=== PATIENT | male | born 2000 | race Caucasian/White ===

== ENCOUNTER 2018-08-10 10:56 | Inpatient (IN) | payer OTHER ==
[~2018-08-10] VITALS: Ht 188 cm; Wt 76.1 kg
[~2018-08-10 10:56] MED LIST: ALBU90OI6 INH; AMPDEX30CR PO; ARIP20 PO; CEPH500 PO; CODACE30 PO; IBUP600 PO; IMIP10; INTUNIV3 MG PO; LAMO100; MELA3 PO; METPHE10 PO; METPHE5; Norco 5-325 Ta1 EACH PO; ONDA4ODT MM; RXCODACET PO; SULTRIDS PO; Zofran Odt4 MG SL
[2018-08-10 11:20] LABS: BASOPHILS ABSOLUTE AUTO 0.09 K/mm3 (0.00-0.23); BASOPHILS PERCENT AUTO 1 % (0-2); EOSINOPHILS ABSOLUTE AUTO 0.38 K/mm3 (0.00-0.68); EOSINOPHILS PERCENT AUTO 4 % (0-6); Hematocrit 48.1 % (37.0-53.0); IMMATURE GRAN ABSOLUTE AUTO 0.03 K/mm3 (0.00-0.10); IMMATURE GRAN PERCENT AUTO 0 % (0-1); LYMPHOCYTES PERCENT AUTO 34 % (21-46); MONOCYTES ABSOLUTE AUTO 0.88 K/mm3 (0.16-1.47); MONOCYTES PERCENT AUTO 10 % (4-13); Mean Corpuscular HGB 29.4 pg (26.0-34.0); Mean Corpuscular HGB Conc 33.3 g/dL (31.5-36.5); Mean Corpuscular Volume 88 fL (80-100); Mean Platelet Volume 11.3 fL (9.1-12.4); NEUTROPHILS ABSOLUTE AUTO 4.33 K/mm3 (1.96-9.15); NEUTROPHILS PERCENT AUTO 50 % (41-73); Platelet Count 250 K/mm3 (150-400); RDW Coefficient Variation 12.5 % (11.7-14.2); RDW Standard Deviation 40.7 fL (35.1-46.3); Red Blood Cell Count 5.44 M/mm3 (4.30-5.90); White Blood Cell Count 8.71 K/mm3 (4.00-11.30)
[2018-08-10 11:40] LABS: Alanine Aminotransfer (ALT/SGP 327 U/L (12-78); Albumin, Blood 4.5 g/dL (3.4-5.0); Albumin/Globulin Ratio 1.5 (0.8-1.8); Alk Phos 166 U/L (50-136); Anion Gap 8 mmol/L (6-16); Aspartate Aminotrans (AST/SGOT 232 U/L (12-37); Bilirubin, Total 3.8 mg/dL (0.1-1.0); Blood Urea Nitrogen 8 mg/dL (8-24); Bun/Creatinine Ratio 8.1 (12.0-20.0); CO2, Blood 29 mmol/L (21-32); Chloride, Blood 104 mmol/L (98-108); Creatinine, Blood 0.99 mg/dL (0.60-1.20); Globulin, Blood 3.1 g/dL (2.2-4.0); Glomerular Filtration Rate >60 (60-); Glucose, Blood 98 mg/dL (70-99); Potassium, Blood 3.3 mmol/L (3.5-5.5); Sodium, Blood 141 mmol/L (136-145); Total Protein, Blood 7.6 g/dL (6.4-8.2)
[2018-08-10 15:09] LABS: CHOL/HDL RATIO 3.9; Cholesterol 125 mg/dL (50-200); HDL Cholesterol 32 mg/dL (>39); LDL/HDL RATIO 2.4; Low Density Lipoprotein Chol 77 mg/dL (0-110); Triglycerides 80 mg/dL (30-140); Very Low Density Lipoprot Chol 16 mg/dL (6-28)
--- NOTE | 2018-08-10 17:20 | NUR ---
PATIENT ARRIVED TO THE FLOOR IN THE 1600 HOUR. PATIENT ADMISSION DONE. NO SKIN ISSUES, NO PROBLEMS WITH HIS CARDIOPULMONARY FUNCTION. NO WHEEZES NOTED. 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 NO ACUTE CONCERNS AT THIS TIME MINUS THE PAIN MANAGEMENT AND TO MANAGE HIS NAUSEA. PATIENT HAD PEPCID DOWN IN THE ED WELL FENTANYL. THE FENTANYL IS BEGINNING TO WEAR OFF AND THE PATIENT IS COMPLAINING OF 9/10 ABDOMINAL PAIN. WILL ASSESS FOR ANY CHANGES. PLANNING TO CALL DR. GARNER TO ASSESS FOR CHANGE IN PAIN MANAGEMENT.
--- NOTE | 2018-08-10 18:11 | NUR ---
SHIFT SUMMARY PATIENT ADMITTED 1600. PAIN MANAGEMENT AND NAUSEA MANAGEMENT ARE HIS CURRENT CONCERNS. CALL TO DR. GARCIA FOR SURGERY CONSULT.
[2018-08-10 18:15] LABS: U Amphetamine Screen Not Detected; U Barbituate Screen Not Detected; U Benzodiazapine Screen Not Detected; U Buprenorphine Screen Not Detected; U Cannabinoids Screen DETECTED; U Cocaine Screen Not Detected; U Methadone Screen Not Detected; U Methamphetamine Screen Not Detected; U Opiates Screen Not Detected; U Oxycodone Screen Not Detected; U Phencyclidine Screen Not Detected; U Propoxyphene Screen Not Detected
--- NOTE | 2018-08-11 04:18 | NUR ---
SHIFT SUMMARY THE PT ADMITTED FOR GALL STONE PANCREATITIS. FULL CODE. NPO. 20G IV TO L AC. INDEPENDENT IN ROOM. NS WITH KCL 20 MEQ RUNNING AT 100 MLS/HR. THE PT PRESENTED TO THE ED WITH A STOMACH ACHE. THE PT DX WITH PANCREATITIS POSSIBLY SECONDARY TO GALLSTONES. HOWEVER, THE US OF THE LIVER AND GALLBLADDER IS UNCREMARKABLE PER REPORT. THE PLAN IS FOR A SURGICAL CONSULT TO DETERMINE THE POSSIBLE NEED FOR A CHOLECYSTECTOMY. LIPASE LEVEL INITIALLY OF 18,775. UPON ARRIVAL ON SHIFT THE PT APPEARED TO BE IN VERY SEVERE PAIN. THE PT WAS CRYING, ROCKING BACK AND FORTH AND COULD NOT SIT STILL, THE PT COULD BARELY ANSWER QUESTIONS DUE TO SEVERE PAIN. PT HAD PAIN MEDS PER EMAR WHICH DID NOT APPEAR TO BE EFFECTIVE PRIOR TO ARRIVAL ON SHIFT. CALL TO HOSPITALIST TO OBTAIN ORDER FOR DIFFERENT MED FOR PAIN TREATMENT. MEDICATED PT PER EMAR X1 SO FAR THIS SHIFT. PT HAS NOT ASKED FOR ADDITIONAL PAIN MEDICATION SO FAR THIS SHIFT. THE PT HAS ASKED FOR WATER SEVERAL TIMES DUE TO DRY MOUTH, GAVE MOISTURE SWABS FOR COMFORT PT IS NPO. THE PT HAS APPEARED TO SLEEP COMFORTABLY MOST OF THE NIGHT. NO APPARENT SIGNS OF ACUTE DISTRESS. ABLE TO MAKE NEEDS KNOWN AND CALL LIGHT IN REACH.
[2018-08-11 05:15] LABS: BASOPHILS ABSOLUTE AUTO 0.05 K/mm3 (0.00-0.23); BASOPHILS PERCENT AUTO 0 % (0-2); EOSINOPHILS ABSOLUTE AUTO 0.09 K/mm3 (0.00-0.68); EOSINOPHILS PERCENT AUTO 1 % (0-6); Hemoglobin 14.1 g/dL (13.5-17.5); IMMATURE GRAN ABSOLUTE AUTO 0.08 K/mm3 (0.00-0.10); IMMATURE GRAN PERCENT AUTO 1 % (0-1); LYMPHOCYTES ABSOLUTE AUTO 1.86 K/mm3 (0.84-5.20); LYMPHOCYTES PERCENT AUTO 11 % (21-46); MONOCYTES PERCENT AUTO 7 % (4-13); Mean Corpuscular HGB 29.1 pg (26.0-34.0); Mean Corpuscular HGB Conc 33.6 g/dL (31.5-36.5); Mean Corpuscular Volume 87 fL (80-100); Mean Platelet Volume 11.6 fL (9.1-12.4); NEUTROPHILS ABSOLUTE AUTO 13.13 K/mm3 (1.96-9.15); NEUTROPHILS PERCENT AUTO 81 % (41-73); Platelet Count 232 K/mm3 (150-400); RDW Coefficient Variation 12.5 % (11.7-14.2); RDW Standard Deviation 39.8 fL (35.1-46.3); Red Blood Cell Count 4.84 M/mm3 (4.30-5.90); White Blood Cell Count 16.31 K/mm3 (4.00-11.30)
[2018-08-11 05:43] LABS: Alanine Aminotransfer (ALT/SGP 195 U/L (12-78); Albumin, Blood 3.5 g/dL (3.4-5.0); Albumin/Globulin Ratio 1.5 (0.8-1.8); Alk Phos 134 U/L (50-136); Anion Gap 8 mmol/L (6-16); Aspartate Aminotrans (AST/SGOT 68 U/L (12-37); Bilirubin, Total 1.3 mg/dL (0.1-1.0); Blood Urea Nitrogen 10 mg/dL (8-24); Bun/Creatinine Ratio 12.7 (12.0-20.0); CO2, Blood 24 mmol/L (21-32); Chloride, Blood 111 mmol/L (98-108); Creatinine, Blood 0.79 mg/dL (0.60-1.20); Globulin, Blood 2.3 g/dL (2.2-4.0); Glomerular Filtration Rate >60 (60-); Glucose, Blood 69 mg/dL (70-99); Sodium, Blood 143 mmol/L (136-145); Total Protein, Blood 5.8 g/dL (6.4-8.2)
--- NOTE | 2018-08-11 17:18 | NUR ---
SUMMARY PT RESTING QUIETLY IN BED, FAMILY HAS BEEN AT THE BEDSIDE FOR MOST OF THE DAY, PT HAS BEEN INDEPENDENT IN THE ROOM, MED PER EMAR FOR PAIN, HAS DENIED ANY NAUSEA T/O THE DAY, PT JAYMIE SMALL AMOUNTS OF ICE CHIPS AND SIPS OF WATER, VSS, NO ACUTE CHANGES, WILL CONT TO MONITOR
--- NOTE | 2018-08-12 05:01 | NUR ---
SHIFT SUMMARY NO ACUTE CHANGES. MEDICATED X1 FOR FEVER AND X1 FOR PAIN. PATIENT SLEPT AND WATCHED TELEVISION DURING SHIFT. PATIENT VERY EAGER TO ADVANCE HIS DIET. PATIENT DENIES NAUSEA AND SHORTNESS OF BREATH. PATIENT INDEPENDENT IN THE ROOM. CALL LIGHT IN REACH, WILL CONTINUE TO MONITOR UNTIL REPORT GIVEN TO ONCOMING RN.
[2018-08-12 05:14] LABS: BASOPHILS ABSOLUTE AUTO 0.04 K/mm3 (0.00-0.23); BASOPHILS PERCENT AUTO 0 % (0-2); EOSINOPHILS ABSOLUTE AUTO 0.17 K/mm3 (0.00-0.68); EOSINOPHILS PERCENT AUTO 1 % (0-6); Hematocrit 40.1 % (37.0-53.0); Hemoglobin 13.2 g/dL (13.5-17.5); IMMATURE GRAN ABSOLUTE AUTO 0.06 K/mm3 (0.00-0.10); IMMATURE GRAN PERCENT AUTO 1 % (0-1); LYMPHOCYTES ABSOLUTE AUTO 2.14 K/mm3 (0.84-5.20); LYMPHOCYTES PERCENT AUTO 17 % (21-46); MONOCYTES ABSOLUTE AUTO 1.08 K/mm3 (0.16-1.47); MONOCYTES PERCENT AUTO 9 % (4-13); Mean Corpuscular HGB 29.1 pg (26.0-34.0); Mean Corpuscular HGB Conc 32.9 g/dL (31.5-36.5); Mean Corpuscular Volume 88 fL (80-100); Mean Platelet Volume 11.4 fL (9.1-12.4); NEUTROPHILS ABSOLUTE AUTO 9.17 K/mm3 (1.96-9.15); NEUTROPHILS PERCENT AUTO 73 % (41-73); Platelet Count 181 K/mm3 (150-400); RDW Coefficient Variation 12.5 % (11.7-14.2); RDW Standard Deviation 40.4 fL (35.1-46.3); Red Blood Cell Count 4.54 M/mm3 (4.30-5.90); White Blood Cell Count 12.66 K/mm3 (4.00-11.30)
[2018-08-12 05:39] LABS: Alanine Aminotransfer (ALT/SGP 128 U/L (12-78); Albumin, Blood 3.4 g/dL (3.4-5.0); Albumin/Globulin Ratio 1.4 (0.8-1.8); Alk Phos 116 U/L (50-136); Anion Gap 8 mmol/L (6-16); Aspartate Aminotrans (AST/SGOT 24 U/L (12-37); Bilirubin, Total 1.5 mg/dL (0.1-1.0); Blood Urea Nitrogen 5 mg/dL (8-24); Bun/Creatinine Ratio 7.2 (12.0-20.0); CO2, Blood 24 mmol/L (21-32); Calcium, Blood 8.8 mg/dL (8.5-10.1); Chloride, Blood 106 mmol/L (98-108); Creatinine, Blood 0.69 mg/dL (0.60-1.20); Globulin, Blood 2.5 g/dL (2.2-4.0); Glomerular Filtration Rate >60 (60-); Glucose, Blood 90 mg/dL (70-99); Potassium, Blood 3.6 mmol/L (3.5-5.5); Sodium, Blood 138 mmol/L (136-145); Total Protein, Blood 5.9 g/dL (6.4-8.2)
[2018-08-12 07:14] LABS: HBSAG SCREEN Negative (Negative); HEP A AB, IGM Negative (Negative); HEP B CORE AB, IGM Negative (Negative); HEP C VIRUS AB <0.1 (0.0-0.9)
--- NOTE | 2018-08-12 07:33 | NUR ---
asked dr. valdez about advancing diet to clear liquids. will look at labs and see patient then decide.
--- NOTE | 2018-08-12 14:23 | NUR ---
CONSULT TO DR. FAVIOLA QUISPE.
--- NOTE | 2018-08-12 16:11 | NUR ---
PATIENT ALERT AND ORIENTED. DENIES NAUSEA. C/O PAIN THIS AM WHICH WENT AWAY IN ABOUT 20 MINUTES WITHOUT MEDS. ALSO C/O PAIN AFTER DRINKING WHICH ALSO WENT AWAY AFTER 10 MINUTES WITHOUT MEDS. HAS BEEN SLEEPING OR WATCHING TV T/O SHIFT. AMBULATORY W/STEADY GAIT IN ROOM. HAS BEEN IN TO SEE. PATIENT AND MOM AWARE TO CONSUME CLEAR LIQUIDS SLOWLY. ABLE TO MAKE NEEDS KNOWN. UNLABORED RESPIRATIONS. WILL CONTINUE TO MONITOR.
--- NOTE | 2018-08-13 04:06 | NUR ---
SHIFT SUMMARY PT HAS SLEPT WELL T/O NIGHT. NO ACUTE CHANGES THIS SHIFT. AOX4. VSS. DENIES NAUSEA OR SOB. REPORTED 6/10 MID-ABD PAIN, STATED HE "CHUGGED" HIS BRANDO MIST, ROUGHLY 20 MIN LATER CHECKED BACK W/PT & PAIN LEVEL WAS A 3-4/10 & WAS TOLERABLE FOR PT BUT HE ASKED FOR MOTRIN, MEDICATED PER ORDERS. PT REPORTS HE IS TOLERATING THE CLEAR LIQUIDS WELL & THIS AM HE REPORTED "FEELING HUNGRY." MOTHER HAS BEEN @BEDSIDE T/O NIGHT & I WILL CONT TO MONITOR PT.
[2018-08-13 05:10] LABS: BASOPHILS ABSOLUTE AUTO 0.05 K/mm3 (0.00-0.23); BASOPHILS PERCENT AUTO 1 % (0-2); EOSINOPHILS PERCENT AUTO 2 % (0-6); Hematocrit 38.6 % (37.0-53.0); Hemoglobin 12.9 g/dL (13.5-17.5); IMMATURE GRAN ABSOLUTE AUTO 0.02 K/mm3 (0.00-0.10); IMMATURE GRAN PERCENT AUTO 0 % (0-1); LYMPHOCYTES PERCENT AUTO 24 % (21-46); MONOCYTES ABSOLUTE AUTO 0.92 K/mm3 (0.16-1.47); MONOCYTES PERCENT AUTO 10 % (4-13); Mean Corpuscular HGB 29.1 pg (26.0-34.0); Mean Corpuscular HGB Conc 33.4 g/dL (31.5-36.5); Mean Corpuscular Volume 87 fL (80-100); Mean Platelet Volume 11.3 fL (9.1-12.4); NEUTROPHILS ABSOLUTE AUTO 5.63 K/mm3 (1.96-9.15); NEUTROPHILS PERCENT AUTO 63 % (41-73); Platelet Count 168 K/mm3 (150-400); RDW Coefficient Variation 12.6 % (11.7-14.2); Red Blood Cell Count 4.43 M/mm3 (4.30-5.90); White Blood Cell Count 8.92 K/mm3 (4.00-11.30)
[2018-08-13 05:54] LABS: Alanine Aminotransfer (ALT/SGP 96 U/L (12-78); Albumin, Blood 3.4 g/dL (3.4-5.0); Albumin/Globulin Ratio 1.2 (0.8-1.8); Alk Phos 106 U/L (50-136); Anion Gap 6 mmol/L (6-16); Aspartate Aminotrans (AST/SGOT 17 U/L (12-37); Bilirubin, Total 1.2 mg/dL (0.1-1.0); Blood Urea Nitrogen 3 mg/dL (8-24); Bun/Creatinine Ratio 4.4 (12.0-20.0); CO2, Blood 26 mmol/L (21-32); Chloride, Blood 108 mmol/L (98-108); Creatinine, Blood 0.68 mg/dL (0.60-1.20); Globulin, Blood 2.8 g/dL (2.2-4.0); Glomerular Filtration Rate >60 (60-); Glucose, Blood 91 mg/dL (70-99); Potassium, Blood 3.6 mmol/L (3.5-5.5); Sodium, Blood 140 mmol/L (136-145); Total Protein, Blood 6.2 g/dL (6.4-8.2)
--- NOTE | 2018-08-13 07:25 | NUR ---
REITERATED TO SIP SLOWLY AND DO NOT GUZZLE FLUIDS SO TO ELIMINATE ABD PAIN. VERY SLIGHT TENDERNESS ON PALPATION. WILL CONTINUE TO MONITOR.
--- NOTE | 2018-08-13 14:34 | NUR ---
REVIEW D'C INSTRUCTIONS W/PATIENT AND MOM. AWARE TO MAKE F/U APPT W/. AWARE TO PRISON WARDEN RX AT [facility]. AWARE IF N/V AND RESOLVES TO START BACK AT CLEAR LIQUIDS AND THEN GRADUALLY ADVANCE. DENIES PAIN OR N/V. AMBULATORY STEADY GAIT. ANSWER ALL QUESTIONS. HAD REG LUNCH WITHOUT ANY N/V OR ABD PAIN. OUT WITH MOM.
== END 2018-08-13 14:10 | disposition home or self-care (01) | DRG 440 ==
LOC: ER 10:56 → MEDS 14:39 → ENPENDDIS 08-13 13:00 → MEDS 08-13 14:10
PROVIDERS: Internal Medicine; ADMIT Family Medicine
DX: K85.10 Biliary acute pancreatitis without necrosis or infection (principal); R79.89 Other specified abnormal findings of blood chemistry; E16.2 Hypoglycemia, unspecified; E87.6 Hypokalemia; F17.210 Nicotine dependence, cigarettes, uncomplicated
CPT/HCPCS: 36415; 36416; 74181; 76705; 80053; 80061; 80074; 83690; 85025; 96361; 96374; 96375; 96376; 99285-25; C9113; G0480; J0295; J1170; J2405; J3010; J3480; J7042; J7120